=== PATIENT | male | born 1945 | race Caucasian/White ===

== ENCOUNTER 2024-09-11 20:37 | Emergency (ER) | payer MEDICARE, OTHER, SELFPAY ==
[2024-09-11 20:38] VITALS: BMI 21.4
[2024-09-11 21:10] VITALS: BP 138/77; PULSE 81; RESP 20; TEMP 36.5; O2SAT 98
[2024-09-11] MEDS: AMOXICILLIN/POT CLAV 875 TABLET 1 TAB PO (22:15)
[2024-09-11 22:48] VITALS: BP 136/70; PULSE 76; RESP 16; TEMP 36.7; O2SAT 98
--- NOTE | 2024-09-12 02:27 | PD.EDMALE ---
ED Male Genitalurinary RME/HPI General Chief complaint: General Adult/Misc Complain Stated complaint: RECTAL PAIN Time Seen by Provider: 09/11/24 22:02 Arrival date/time: 09/11/24 20:37 79M with history of HTN, BPH, and likely dementia (per but patient denies) presents to ED with 3 years of intermittent rectal pain that got worse recently. He has not mentioned it to his PCP before. Patient is from [place] and is visiting. Per , patient has had normal colonoscopy about 2 years. Patient/ deny black/red BM, change in stool, unintentional weight loss, and fevers/chills. Limitations: no limitations Related Data Previous Rx's ?Medication ?Instructions ?Recorded ibuprofen 600 mg tablet 600 mg PO Q6HR PRN PAIN #20 tabs 03/31/14 amoxicillin 875 mg-potassium 1 tab PO BID #20 tabs 12/26/23 clavulanate 125 mg tablet hydrocodone 5 mg-acetaminophen 325 2 tab PO TID PRN pain #30 tabs 12/26/23 mg tablet amoxicillin 875 mg-potassium 1 tab PO BID 10 days #20 tabs 09/11/24 clavulanate 125 mg tablet hydrocortisone 2.5 % topical cream 1 applic [place] QDAY PRN hemorrhoids 09/11/24 with perineal applicator #30 grams (Procto-Med ) lidocaine 5 % topical ointment 1 applic topical QDAY PRN pain #30 09/11/24 grams Allergies Allergy/AdvReac Type Severity Reaction Status Date / Time No Known Allergies Allergy Verified 12/26/23 12:31 Review of Systems Review of Systems Systems Reviewed: All systems reviewed, normal except as documented Constitutional Constitutional: Reports system reviewed and no additional complaints, except as documented, Denies fever(s) and Denies headache(s) ENT Ears, Nose, Mouth, and Throat: Denies disequilibrium and Denies headache(s) Cardiovascular Cardiovascular: Reports system reviewed and no additional complaints, except as documented, Denies chest pain and Denies dyspnea Respiratory Respiratory: Reports system reviewed and no additional complaints, except as documented, Denies cough and Denies dyspnea Gastrointestinal Gastrointestinal: Reports system reviewed and no additional complaints, except as documented, Denies abdominal pain, Denies nausea and Denies vomiting Integumentary/Breasts Skin/Breast: Reports as per HPI and Reports skin pain Neurologic Neurologic: Reports system reviewed and no additional complaints, except as documented, Denies confusion, Denies disequilibrium and Denies headache(s) Psychiatric Psychiatric: Denies confusion Past Medical History Past Medical History CARDIAC: Negative Congestive Heart Failure RESPIRATORY: Negative Chronic Obstructive Pulmonary Disease (COPD) GENITOURINARY: Negative Renal Disease ENDOCRINE: Negative Diabetes Mellitus Type 1 or Diabetes Mellitus Type 2 Social History SMOKING STATUS: Never smoker ED Exam General Limitations: Present no limitations General appearance: Present alert and in no apparent distress Head Head exam: Present atraumatic Eye Eye exam: Present normal appearance, PERRL and EOMI ENT ENT exam: Present normal exam, normal oropharynx and mucous membranes moist Neck Neck exam: Present normal inspection, full ROM and trachea midline Chest Chest inspection: Present normal inspection and symmetric chest wall rise Respiratory Respiratory exam: Present normal lung sounds bilaterally Cardiovascular Cardiovascular exam: Present regular rate, normal rhythm and normal heart sounds Abdominal Exam Abdominal exam: Present soft and normal bowel sounds Rectal Exam Rectal exam: Present hemorrhoids, tenderness and other (perianal redness) Extremities Exam Extremities exam: Present normal inspection and full ROM Back Exam Back exam: Present normal inspection and full ROM Neurological Exam Neurological exam: Present alert, oriented X3 and CN II-XII intact Psychiatric Psychiatric exam: Present normal affect and normal mood Skin Skin exam: Present warm, dry, intact and normal color Course Quality Measures none Orders Category Date Time Status Amoxicillin/Pot Clav 875 [Augmentin 875] Med 09/11/24 22:08 Discontinued 1 tab PO X1 ONE Vital Signs Vital signs: Vital Signs Temperature 97.7 F 09/11/24 21:10 Pulse Rate 81 09/11/24 21:10 Respiratory Rate 20 09/11/24 21:10 Blood Pressure 138/77 H 09/11/24 21:10 Pulse Oximetry (%) 98 09/11/24 21:10 Oxygen Delivery Method Room Air 09/11/24 21:10 O2 at 98% on RA and WNLs Urogenital - Male MDM Narrative MDM Narrative:: 79M with history of HTN, BPH, and likely dementia (per but patient denies) presents to ED with 3 years of intermittent rectal pain that got worse recently. He has not mentioned it to his PCP before. Patient is from [place] and is visiting. Per , patient has had normal colonoscopy about 2 years. Patient/ deny black/red BM, change in stool, unintentional weight loss, and fevers/chills. Physical exam with hand fretted instrument maker reveals external hemorrhoid and perianal redness and tenderness. No area of fluctuance. Patient is afebrile, calm, and alert. /patient do not want to wait for CT as they are going back to [place] soon. They state they will get it done there if needed. Will treat for hemorrhoids and perianal cellulitis. Patient data External records reviewed:: [facility] previous records Clinical information provided by:: patient Social determinants that could affect healthcare access:: none Patient has the following chronic illnesses:: HTN, BPH, and likely dementia How is presenting disease/condition affected by chronic disease/condition?: exacerbated by Evaluation data The following diagnostics were reviewed and interpreted by me:: other (specify) (none) Lab and/or radiology exams considered but not ordered:: not ordered Interpretation Summary: n/a Medications / Prescriptions Medications or Prescriptions considered but not ordered:: ordered Medication administrations:: Medication Administration History Discontinued Medications Amoxicillin/Clavulanate Potassium (Amoxicillin/Pot Clav 875 Tablet) 1 tab PO X1 ONE Stop: 09/11/24 22:09 Last Admin: 09/11/24 22:15 Dose: 1 tab Documented By: CB above Consultations Consultation(s) initiated? (list below): No Diagnosis Urogenital Male Differential Diagnosis: urinary tract infection, priapism, urethritis, epididymitis, genital herpes simplex, prostatitis, acute retention of urine, inguinal hernia and other (perianal cellulitis and hemorrhoid) Most likely diagnosis given after review of the tests above:: perianal cellulitis and hemorrhoid Admission Indicated Admission indicated?: not indicated Admission Request Was there a request for admission?: No Disposition Plan Disposition Plan: Discharge Discharge Attestation Discharge Attestation: The patient and all family members were given an opportunity to ask questions and understood the discharge instructions. Discharge instructions specifically effects, indications for sooner follow up or return to the emergency department, and the expected course of current diagnosis. Patient condition: Stable Discharge Plan Plan Patient Disposition: HOME (Self Care) Disposition Comment: Stable Prescriptions/Referrals Prescriptions/Med Rec: New amoxicillin-pot clavulanate 875-125 mg tablet 1 tab PO BID 10 Days Qty: 20 0RF hydrocortisone [Procto-Med HC] 2.5 % cream with perineal applicator 1 applic [place] QDAY PRN (Reason: hemorrhoids) Qty: 30 0RF lidocaine 5 % ointment 1 applic topical QDAY PRN (Reason: pain) Qty: 30 0RF Rx Instructions: use 10-15 min before wanting to have BM No Action ibuprofen 600 MG tablet 600 mg PO Q6HR PRN (Reason: PAIN) Qty: 20 0RF hydrocodone-acetaminophen 5-325 mg tablet 2 tab PO TID MDD 6 PRN (Reason: pain) Qty: 30 0RF amoxicillin-pot clavulanate 875-125 mg tablet 1 tab PO BID Qty: 20 0RF Referrals: Temporary Provider,ED [Physician] - In 1 week Problem List Clinical Impression: Hemorrhoid, Perianal cellulitis Patient/Caregiver Discharge Instructions Education Materials: ED Cellulitis, ED Hemorrhoids Additional Instructions: Please follow-up with PCP within 24-48 hours and return immediately if symptoms worsen. Recommend seeing GI and other specialists in [place]. Print Language: Citizen Of [place] Stand Alone Forms: Patient Portal Info Letter GAEL/NOAH Supervising Physician GAEL/NOAH Supervising Physician: Dr. Mcelroy
== END 2024-09-11 22:50 | disposition home or self-care (01) ==
LOC: SERX 22:12
PROVIDERS: Emergency Provider Emergency Medicine
DX: K64.4 Residual hemorrhoidal skin tags (principal); K61.1 Rectal abscess; I10 Essential (primary) hypertension
CPT/HCPCS: 99282; A9270